=== PATIENT | female | born 1990 | race African-American/Black ===

== ENCOUNTER 2016-07-25 21:37 | Emergency (ER) | payer OTHER ==
[~2016-07-25] VITALS: Ht 157.5 cm; Wt 91.2 kg
--- NOTE | ~2016-07-25 | EKG ---
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 : 1990 Requested By: Dmitriy Youssef Order Number: [id number] MD: Luis Fernando Rangel Measurements Intervals [place] Rate: 96 P: 50 MA: 139 QRS: 26 QRSD: 84 T: 14 QT: 340 QTc: 430 Interpretive Statements Sinus rhythm Normal tracing Compared to ECG 01/27/2012 01:29:33 No significant changes Electronically Signed On 07-27-2016 8:03:13 CDT by Luis Fernando Rangel [email or web address] <ELECTRONICALLY SIGNED> By: Luis Fernando Rangel MD, [facility] 07/27/16 0803 [id number] 2201 Luis Fernando Rangel MD, FACC /EPI
[~2016-07-25 21:37] MED LIST: FLEXERIL PO; IBUPROFEN 600600 M1 PO; NOHOMEMEDICATIONS
[2016-07-25 22:25] LABS: ABSOLUTE NEUTROPHILS 7.3 thou/uL (1.4-8.2); BASOPHILS 0.4 % (0.0-2.0); EOSINOPHILS 0.5 % (0.0-3.0); HEMATOCRIT 39.8 % (37.0-47.0); LYMPHOCYTES 19.7 % (24.0-44.0); MCHC 32.7 g/dL (28.0-37.0); MCV 82.5 fL (80.0-100.0); MONOCYTES 8.3 % (1.0-8.0); PLATELET COUNT 338 thou/uL (150-400); POLYS 71.1 % (36.0-66.0); RBC 4.83 mil/uL (4.20-5.00); RDW 14.2 % (10.5-14.5); WBC 10.2 thou/uL (4.0-11.0)
[2016-07-25 22:37] LABS: MANUAL DIFF NO
[2016-07-25 22:56] LABS: ANION GAP 11 mmol/L (7-16); BUN 7 mg/dL (7-18); CALCIUM 9.3 mg/dL (8.5-10.1); CHLORIDE 102 mmol/L (98-107); CO2 24 mmol/L (21-32); CREATININE 0.9 mg/dL (0.6-1.0); GLUCOSE 80 mg/dL (74-106); POTASSIUM 3.5 mmol/L (3.5-5.1); SODIUM 137 mmol/L (136-145)
[2016-07-25 23:01] LABS: ALKALINE PHOSPHATASE 96 U/L (46-116); SGOT 42 U/L (15-37); SGPT 22 U/L (30-65); TOTAL BILIRUBIN 0.4 mg/dL (<0.1-1.0); TOTAL PROTEIN 8.8 g/dL (6.4-8.2); TROPONIN-I < 0.04 ng/mL (<0.04-0.07)
[2016-07-25] MEDS ORDERED: ROBAXIN500 MG PO (23:44)
[2016-07-25] MEDS ORDERED: NAPROSYN500 MG PO (23:44)
[2016-07-26 00:23] VITALS: BP 106/51
== END 2016-07-26 00:33 | disposition home or self-care (01) ==
LOC: ER 21:37
PROVIDERS: Emergency Medicine
DX: R07.9 Chest pain, unspecified (principal); R74.8 Abnormal levels of other serum enzymes; R79.1 Abnormal coagulation profile

== ENCOUNTER 2016-08-25 20:48 | Emergency (ER) | payer OTHER ==
[~2016-08-25] VITALS: Ht 157.5 cm; Wt 88.0 kg
[~2016-08-25 20:48] MED LIST changes: +NAPROSYN500 MG PO; +ROBAXIN500 MG PO
[2016-08-25 20:49] VITALS: BP 147/79
[2016-08-25] MEDS ORDERED: MOBIC7.5 MG PO (21:32)
== END 2016-08-25 21:40 | disposition home or self-care (01) ==
LOC: ER 20:48
DX: I83.91 Asymptomatic varicose veins of right lower extremity (principal)

== ENCOUNTER 2016-10-26 20:36 | Emergency (ER) | payer OTHER ==
[~2016-10-26] VITALS: Ht 157.5 cm; Wt 81.2 kg
--- NOTE | ~2016-10-26 | EKG ---
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 : 1990 Requested By: Idalia Hernandez Order Number: [id number] MD: Luis Fernando Rangel Measurements Intervals [place] Rate: 77 P: 39 [place]: 137 QRS: 36 QRSD: 88 T: 14 QT: 380 QTc: 431 Interpretive Statements Sinus rhythm Normal tracing Compared to ECG 07/25/2016 22:01:38 No significant changes Electronically Signed On 10-27-2016 9:01:18 CDT by Luis Fernando Rangel [email or web address] <ELECTRONICALLY SIGNED> By: Luis Fernando Rangel MD, [facility] 10/27/16 09 53 53 Luis Fernando Rangel MD, FACC /EPI
[~2016-10-26 20:36] MED LIST changes: +MOBIC7.5 MG PO
[2016-10-26 21:11] LABS: HEMATOCRIT 36.8 % (37.0-47.0); HEMOGLOBIN 11.7 gm/dL (12.0-15.0); MCHC 31.8 g/dL (28.0-37.0); MCV 81.7 fL (80.0-100.0); RBC 4.5 mil/uL (4.20-5.00); RDW 15.2 % (10.5-14.5); WBC 7.1 thou/uL (4.0-11.0)
[2016-10-26 21:30] LABS: ANION GAP 7 mmol/L (7-16); BUN 13 mg/dL (7-18); CHLORIDE 106 mmol/L (98-107); CO2 26 mmol/L (21-32); GLUCOSE 101 mg/dL (74-106); POTASSIUM 3.7 mmol/L (3.5-5.1); SODIUM 139 mmol/L (136-145)
[2016-10-26 21:39] LABS: TROPONIN-I < 0.04 ng/mL (<0.04-0.07)
[2016-10-26] MEDS ORDERED: MOBIC7.5 MG PO (21:48)
[2016-10-26 22:22] VITALS: BP 122/69
== END 2016-10-26 22:23 | disposition home or self-care (01) ==
LOC: ER 20:36
PROVIDERS: Physician Assistant
DX: R07.89 Other chest pain (principal)

== ENCOUNTER 2017-01-12 20:52 | Emergency (ER) | payer BC ==
[~2017-01-12] VITALS: Ht 157.5 cm; Wt 84.4 kg
[2017-01-12] MEDS ORDERED: HYDROXYZINE HCL10 M2 PO (22:05)
[2017-01-12 22:39] VITALS: BP 168/76
== END 2017-01-12 22:40 | disposition home or self-care (01) ==
LOC: ER 20:52
DX: F41.9 Anxiety disorder, unspecified (principal); F12.10 Cannabis abuse, uncomplicated

== ENCOUNTER 2018-02-24 23:13 | Emergency (ER) | payer BC ==
[~2018-02-24] VITALS: Ht 154.9 cm; Wt 93.4 kg
[~2018-02-24 23:13] MED LIST changes: +HYDROXYZINE HCL10 M2 PO
[2018-02-25 00:23] LABS: ABSOLUTE NEUTROPHILS 6.1 thou/uL (1.4-8.2); BASOPHILS 0.5 % (0.0-2.0); EOSINOPHILS 0.7 % (0.0-3.0); HEMATOCRIT 38.9 % (37.0-47.0); HEMOGLOBIN 12.7 gm/dL (12.0-15.0); LYMPHOCYTES 21.7 % (24.0-44.0); MCH 27.3 pg (26.0-34.0); MCHC 32.6 g/dL (28.0-37.0); MCV 83.6 fL (80.0-100.0); MONOCYTES 9.6 % (1.0-8.0); PLATELET COUNT 268 thou/uL (150-400); POLYS 67.5 % (36.0-66.0); RBC 4.65 mil/uL (4.20-5.00); RDW 14.3 % (10.5-14.5); WBC 9.1 thou/uL (4.0-11.0)
[2018-02-25 00:45] LABS: CALCIUM 8.4 mg/dL (8.5-10.1); CREATININE 0.8 mg/dL (0.6-1.0); POTASSIUM 3.8 mmol/L (3.5-5.1)
[2018-02-25 00:51] LABS: ALBUMIN 3.4 g/dL (3.4-5.0); TOTAL BILIRUBIN 0.4 mg/dL (<0.1-1.0); TOTAL PROTEIN 7.6 g/dL (6.4-8.2)
[2018-02-25 01:19] VITALS: BP 106/74
--- NOTE | 2018-02-25 08:29 | EKG ---
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 : 1990 Requested By: Zheng Pearson Order Number: [id number] MD: Luis Fernando Rangel Measurements Intervals [place] Rate: 89 P: 51 IA: 143 QRS: 34 QRSD: 84 T: 24 QT: 353 QTc: 430 Interpretive Statements Sinus rhythm Normal tracing Compared to ECG 10/26/2016 20:54:49 No significant changes Electronically Signed On 02-25-2018 8:29:14 [employer] by Luis Fernando Rangel [email or web address] <ELECTRONICALLY SIGNED> By: Luis Fernando Rangel MD, [facility] 02/25/18 0829 [id number] 2346 Luis Fernando Rangel MD, FACC /EPI
== END 2018-02-25 01:20 | disposition home or self-care (01) ==
LOC: ER 23:13
PROVIDERS: Emergency Medicine
DX: R07.89 Other chest pain (principal)

== ENCOUNTER 2019-05-13 18:19 | Emergency (ER) | payer BC ==
[~2019-05-13] VITALS: Ht 157.5 cm; Wt 99.5 kg
[2019-05-13 19:15] LABS: ABSOLUTE NEUTROPHILS 6.4 thou/uL (1.4-8.2); BASOPHILS 0.4 % (0.0-2.0); EOSINOPHILS 0.6 % (0.0-3.0); HEMATOCRIT 38.8 % (37.0-47.0); HEMOGLOBIN 12.6 gm/dL (12.0-15.0); LYMPHOCYTES 17.7 % (24.0-44.0); MCH 26.9 pg (26.0-34.0); MCHC 32.6 g/dL (28.0-37.0); MCV 82.5 fL (80.0-100.0); MONOCYTES 7.9 % (1.0-8.0); PLATELET COUNT 338 thou/uL (150-400); POLYS 73.4 % (36.0-66.0); RDW 14.6 % (10.5-14.5); WBC 8.7 thou/uL (4.0-11.0)
[2019-05-13 19:24] LABS: ANION GAP 9 mmol/L (7-16); BUN 10 mg/dL (7-18); CALCIUM 8.5 mg/dL (8.5-10.1); CHLORIDE 102 mmol/L (98-107); CO2 27 mmol/L (21-32); CREATININE 0.8 mg/dL (0.6-1.0); GLUCOSE 110 mg/dL (74-106); POTASSIUM 3.1 mmol/L (3.5-5.1); SODIUM 138 mmol/L (136-145)
[2019-05-13 19:34] LABS: ALBUMIN 3.7 g/dL (3.4-5.0); SGOT 22 U/L (15-37); SGPT 19 U/L (30-65); TOTAL BILIRUBIN 0.3 mg/dL (<0.1-1.0); TOTAL PROTEIN 7.8 g/dL (6.4-8.2); TROPONIN-I <0.06 ng/mL (<0.06)
[2019-05-13 20:54] LABS: APTT 32.4 Seconds (24.5-32.8); INR 1.1
[2019-05-13 23:01] VITALS: BP 123/66
--- NOTE | 2019-05-14 09:40 | EKG ---
[facility] [place] [address] ELECTROCARDIOGRAM REPORT Name: CONNER SIMS Room #: DEP [facility]..#: [id number] Admission: 05/13/19 Attend Phys: Discharge: 05/13/19 Date of : [birth year] Report #: [id number] THIS REPORT FOR: cc: Mateo Levy MD, David H. MD Lundgren,Luis Fernando Rodriguez MD 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 05/14/19 0938 182 23 Luis Fernando Rangel MD, [facility] /EPI
== END 2019-05-13 23:02 | disposition home or self-care (01) ==
LOC: ER 18:19
PROVIDERS: Physician Assistant
DX: R07.89 Other chest pain (principal); E87.6 Hypokalemia

== ENCOUNTER 2019-06-28 19:58 | Emergency (ER) | payer BC ==
[~2019-06-28] VITALS: Ht 152.4 cm; Wt 96.2 kg
[2019-06-28 20:53] LABS: ABSOLUTE NEUTROPHILS 5.6 thou/uL (1.4-8.2); BASOPHILS 0.4 % (0.0-2.0); EOSINOPHILS 0.9 % (0.0-3.0); HEMATOCRIT 37.1 % (37.0-47.0); LYMPHOCYTES 20.4 % (24.0-44.0); MCH 26.6 pg (26.0-34.0); MCHC 32.4 g/dL (28.0-37.0); MONOCYTES 10.2 % (1.0-8.0); PLATELET COUNT 342 thou/uL (150-400); POLYS 68.1 % (36.0-66.0); RBC 4.53 mil/uL (4.20-5.00); RDW 14.9 % (10.5-14.5); WBC 8.2 thou/uL (4.0-11.0)
[2019-06-28 21:02] LABS: ANION GAP 8 mmol/L (7-16); BUN 8 mg/dL (7-18); CALCIUM 8.6 mg/dL (8.5-10.1); CHLORIDE 104 mmol/L (98-107); CO2 26 mmol/L (21-32); CREATININE 0.8 mg/dL (0.6-1.0); GLUCOSE 80 mg/dL (74-106); POTASSIUM 3.5 mmol/L (3.5-5.1); SODIUM 138 mmol/L (136-145)
[2019-06-28 21:11] LABS: ALBUMIN 3.6 g/dL (3.4-5.0); SGOT 22 U/L (15-37); SGPT 22 U/L (30-65); TOTAL BILIRUBIN 0.5 mg/dL (<0.1-1.0); TOTAL PROTEIN 7.6 g/dL (6.4-8.2); TROPONIN-I <0.06 ng/mL (<0.06)
[2019-06-28 21:43] VITALS: BP 123/72
--- NOTE | 2019-06-29 10:21 | EKG ---
[facility] [place] [address] ELECTROCARDIOGRAM REPORT Name: CONNER SIMS Room #: DEP [facility].#: [id number] Admission: 06/28/19 Attend Phys: Discharge: 06/28/19 Date of : [birth year] Report #: [id number] THIS REPORT FOR: cc: FAM - Family physician unknown FAM - Family physician unknown Luis Fernando Rangel MD [facility] THIS REPORT FOR: //name// 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[place] [id number] : 1990 Requested By: Drew Boyd Order Number: [id number] MD: Luis Fernando Rangel Measurements Intervals [place] Rate: 80 P: 4 AK: 130 QRS: 31 QRSD: 80 T: 16 QT: 352 QTc: 406 Interpretive Statements Sinus rhythm Normal tracing Compared to ECG 05/13/2019 18:24:43 No significant changes Electronically Signed On 06-29-2019 10:19:18 CDT by Luis Fernando Rangel [email or web address] <ELECTRONICALLY SIGNED> By: Luis Fernando Rangel MD, FAC 06/29/19 1019 22 22 Luis Fernando Rangel MD, [facility] /EPI
== END 2019-06-28 21:53 | disposition home or self-care (01) ==
LOC: ER 19:58
PROVIDERS: Emergency Medicine
DX: R00.2 Palpitations (principal); R00.0 Tachycardia, unspecified; R53.83 Other fatigue

== ENCOUNTER 2019-07-14 19:48 | Emergency (ER) | payer BC ==
[~2019-07-14] VITALS: Ht 154.9 cm; Wt 94.8 kg
[2019-07-14] MEDS ORDERED: IBUPROFEN 600600 M1 PO (20:01)
[2019-07-14 20:48] LABS: ABSOLUTE NEUTROPHILS 6.4 thou/uL (1.4-8.2); BASOPHILS 0.4 % (0.0-2.0); EOSINOPHILS 0.6 % (0.0-3.0); HEMATOCRIT 37.2 % (37.0-47.0); HEMOGLOBIN 12.1 gm/dL (12.0-15.0); LYMPHOCYTES 20.5 % (24.0-44.0); MCH 26.9 pg (26.0-34.0); MCHC 32.7 g/dL (28.0-37.0); MCV 82.3 fL (80.0-100.0); MONOCYTES 10.1 % (1.0-8.0); PLATELET COUNT 393 thou/uL (150-400); POLYS 68.4 % (36.0-66.0); RBC 4.52 mil/uL (4.20-5.00); RDW 14.8 % (10.5-14.5); WBC 9.4 thou/uL (4.0-11.0)
[2019-07-14 20:53] LABS: ANION GAP 7 mmol/L (7-16); BUN 10 mg/dL (7-18); CALCIUM 8.6 mg/dL (8.5-10.1); CHLORIDE 103 mmol/L (98-107); CO2 25 mmol/L (21-32); CREATININE 0.8 mg/dL (0.6-1.0); GLUCOSE 74 mg/dL (74-106); POTASSIUM 4.7 mmol/L (3.5-5.1); SODIUM 135 mmol/L (136-145)
[2019-07-14 21:02] LABS: TROPONIN-I <0.06 ng/mL (<0.06)
[2019-07-15 02:15] VITALS: BP 136/70
[2019-07-15] MEDS ORDERED: PANTOPRAZOLE SO40 M1 PO (02:36)
[2019-07-15] MEDS ORDERED: NAPROSYN500 MG PO (02:36)
--- NOTE | 2019-07-15 08:04 | EKG ---
[facility] [place] [address] ELECTROCARDIOGRAM REPORT Name: CONNER SIMS Room #: DEP [facility]..#: [id number] Admission: 07/14/19 Attend Phys: Discharge: 07/15/19 Date of : [birth year] Report #: [id number] THIS REPORT FOR: cc: Mateo Levy MD, David H. 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 : 1990 Requested By: Jose Francisco Leach Order Number: [id number] MD: Luis Fernando Rangel Measurements Intervals [place] Rate: 89 P: 61 NE: 151 QRS: 38 QRSD: 78 T: 14 QT: 343 QTc: 418 Interpretive Statements Sinus rhythm Normal tracing Compared to ECG 06/28/2019 20:23:23 No significant changes Electronically Signed On 07-15-2019 8:02:04 CDT by Luis Fernando Rangel [email or web address] <ELECTRONICALLY SIGNED> By: Luis Fernando Rangel MD, [facility] 07/15/19801 16 16 Luis Fernando Rangel MD, [facility] /EPI
== END 2019-07-15 03:21 | disposition home or self-care (01) ==
LOC: ER 19:48
PROVIDERS: Emergency Medicine
DX: R07.89 Other chest pain (principal)